=== PATIENT | female | born 1945 | race African-American/Black ===

== ENCOUNTER 2021-01-09 11:23 | Observation (INO) ==
[2021-01-09 11:53] LABS: Basophils % 0.7 % (0.0-0.8); Eosinophils # 0.1 10*3/uL (0.0-0.87); Hemoglobin 11.6 GM/DL (12.0-16.0); Immature Granulocytes % 0.7 %; Immature Granulocytes Absolute 0.04 #; Lymphocytes # 1.7 10*3/uL (1.4-4.0); Lymphocytes % 30.4 % (21.3-54.2); Mean Corpuscular HGB Conc 31.4 GM/DL (32-36); Mean Corpuscular Volume 95.4 FL (87-102); Mean Platelet Volume 9.5 FL (9.6-12.0); Monocytes % 5.2 % (1.7-12.7); Platelet Count 238 T/CUMM (130-400); Red Blood Count 3.88 MC/CUMM (3.8-5.5); Red Cell Distribution Width 13.2 % (9.3-17.3); White Blood Count 5.6 T/CUMM (4-12)
[2021-01-09] MEDS ORDERED: ASPIRIN 325 MG TABLET PO STA (11:53)
[2021-01-09] MEDS ORDERED: NITROGLYCERIN SL 0.4 MG TABLET SL PRN (11:53)
[2021-01-09 12:14] LABS: Albumin 3.5 G/DL (3.4-5.0); Bilirubin,Total 0.4 MG/DL (0.20-1.00); Calcium 9.3 MG/DL (8.5-10.1); Osmolality,Calculated 280.5 MOS/KG (273-304); Potassium 4.4 MMOL/L (3.5-5.1); Total Protein 7.3 G/DL (6.4-8.2)
[2021-01-09] MEDS ORDERED: ALUM/MAG/SIMETH/LIDO VISC 1:1 30 ML BOTTLE PO STA (12:48)
[2021-01-09] MEDS ORDERED: BISACODYL 5 MG TABLET PO PRN (14:40)
[2021-01-09] MEDS ORDERED: DEXTROSE 50% 25 GM/50 ML VIAL IV PRN (14:40)
[2021-01-09] MEDS ORDERED: GLUCAGON 1 MG VIAL IM PRN (14:40)
[2021-01-09] MEDS ORDERED: ONDANSETRON 4 MG/2 ML VIAL IV PRN (14:40)
[2021-01-09] MEDS ORDERED: MAGNESIUM HYDROXIDE SUSP 30 ML UDCUP PO PRN (14:40)
[2021-01-09] MEDS ORDERED: MORPHINE 2 MG/1 ML SYRINGE IV PRN (14:40)
[2021-01-09] MEDS ORDERED: ENOXAPARIN 40 MG/0.4 ML SYRINGE SUBCUT SCH (15:00)
[2021-01-09] MEDS ORDERED: CARBOXYMETHYLCELLULOSE 1% OPH SOLN BOTH EYES PRN (17:30)
[2021-01-09] MEDS: PANTOPRAZOLE 40 MG TABLET PO SCH (17:32)
[2021-01-09] MEDS: ACETAMINOPHEN 325 MG TABLET PO PRN (17:33)
[2021-01-09] MEDS: LACTATED RINGERS 1,000 ML IV SCH (17:34)
[2021-01-09] MEDS: MONTELUKAST 10 MG TABLET PO SCH (21:48)
[2021-01-09] MEDS: CALCIUM (CARBONATE)/VITAMIN D 600 MG-400 UNIT TABLET PO SCH (21:48)
[2021-01-10] MEDS ORDERED: METOPROLOL TARTRATE 5 MG/5 ML VIAL IV ONE (04:13)
[2021-01-10] MEDS: ENOXAPARIN 100 MG/ML SYRINGE SUBCUT SCH ×2 (04:33→15:25)
[2021-01-10 05:57] LABS: Basophils % 0.7 % (0.0-0.8); Eosinophils # 0.2 10*3/uL (0.0-0.87); Eosinophils % 2.7 % (0.00-10.9); Hematocrit 37.5 VOL% (35.7-47.0); Hemoglobin 11.9 GM/DL (12.0-16.0); Immature Granulocytes % 0.4 %; Immature Granulocytes Absolute 0.02 #; Lymphocytes # 2.1 10*3/uL (1.4-4.0); Lymphocytes % 36.9 % (21.3-54.2); Mean Corpuscular HGB Conc 31.7 GM/DL (32-36); Mean Corpuscular Volume 95.2 FL (87-102); Mean Platelet Volume 9.7 FL (9.6-12.0); Monocytes % 7.8 % (1.7-12.7); Neutrophils % 51.5 % (38.7-73.9); Platelet Count 246 T/CUMM (130-400); Red Blood Count 3.94 MC/CUMM (3.8-5.5); Red Cell Distribution Width 13.1 % (9.3-17.3); White Blood Count 5.6 T/CUMM (4-12)
[2021-01-10] MEDS: LACTATED RINGERS 1,000 ML IV SCH ×2 (06:20→20:46)
[2021-01-10 06:52] LABS: Albumin 3.1 G/DL (3.4-5.0); Bilirubin,Total 0.8 MG/DL (0.20-1.00); Calcium 9.5 MG/DL (8.5-10.1); Osmolality,Calculated 288.7 MOS/KG (273-304); Potassium 4.1 MMOL/L (3.5-5.1); Risk Ratio 4.26; Thyroid Stimulating Hormone 1.43 uIU/ml (0.358-3.74); VLDL Cholesterol 25.8 MG/DL
[2021-01-10] MEDS: MULTIVITAMIN (CENTRUM) TABLET PO SCH (08:55)
[2021-01-10] MEDS: ASPIRIN CHEW 81 MG TABLET PO SCH (08:55)
[2021-01-10] MEDS: DOXAZOSIN 1 MG TABLET PO SCH (08:55)
[2021-01-10] MEDS: PANTOPRAZOLE 40 MG TABLET PO SCH (08:56)
[2021-01-10] MEDS: CALCIUM (CARBONATE)/VITAMIN D 600 MG-400 UNIT TABLET PO SCH ×2 (08:56→21:31)
[2021-01-10] MEDS: LOSARTAN 50 MG TABLET PO SCH (08:56)
[2021-01-10] MEDS ORDERED: METOPROLOL TARTRATE 25 MG TABLET PO SCH (09:00)
[2021-01-10] MEDS ORDERED: NABUMETONE 500 MG TABLET PO PRN (11:29)
[2021-01-10] MEDS ORDERED: METOPROLOL SUCCINATE XL 50 MG TABLET PO SCH (12:00)
[2021-01-10] MEDS: SOTALOL 80 MG TABLET PO SCH (15:25)
[2021-01-10] MEDS: MONTELUKAST 10 MG TABLET PO SCH (20:43)
[2021-01-10] MEDS: FLUTICASONE 50 MCG NASAL SPRAY 16 GM BOTTLE BOTH NARES SCH (20:43)
[2021-01-11] MEDS: ENOXAPARIN 100 MG/ML SYRINGE SUBCUT SCH ×2 (02:48→15:47)
[2021-01-11] MEDS: ACETAMINOPHEN 325 MG TABLET PO PRN ×2 (04:06→21:35)
[2021-01-11 04:41] LABS: Basophils % 0.6 % (0.0-0.8); Eosinophils # 0.2 10*3/uL (0.0-0.87); Eosinophils % 2.9 % (0.00-10.9); Hematocrit 34.7 VOL% (35.7-47.0); Hemoglobin 10.7 GM/DL (12.0-16.0); Immature Granulocytes % 0.3 %; Immature Granulocytes Absolute 0.02 #; Lymphocytes # 3.4 10*3/uL (1.4-4.0); Lymphocytes % 47.4 % (21.3-54.2); Mean Corpuscular HGB Conc 30.8 GM/DL (32-36); Mean Corpuscular Volume 97.7 FL (87-102); Mean Platelet Volume 9.7 FL (9.6-12.0); Monocytes % 7.3 % (1.7-12.7); Neutrophils % 41.5 % (38.7-73.9); Platelet Count 220 T/CUMM (130-400); Red Blood Count 3.55 MC/CUMM (3.8-5.5); Red Cell Distribution Width 13.2 % (9.3-17.3); White Blood Count 7.2 T/CUMM (4-12)
[2021-01-11 05:02] LABS: Calcium 8.9 MG/DL (8.5-10.1); Potassium 4.2 MMOL/L (3.5-5.1)
[2021-01-11] MEDS: LOSARTAN 50 MG TABLET PO SCH (08:45)
[2021-01-11] MEDS: DOXAZOSIN 1 MG TABLET PO SCH (08:45)
[2021-01-11] MEDS: CALCIUM (CARBONATE)/VITAMIN D 600 MG-400 UNIT TABLET PO SCH ×2 (08:45→23:49)
[2021-01-11] MEDS: ASPIRIN CHEW 81 MG TABLET PO SCH (08:45)
[2021-01-11] MEDS: MULTIVITAMIN (CENTRUM) TABLET PO SCH (08:45)
[2021-01-11] MEDS: PANTOPRAZOLE 40 MG TABLET PO SCH (08:45)
[2021-01-11] MEDS: SOTALOL 80 MG TABLET PO SCH ×3 (08:45→23:49)
[2021-01-11] MEDS: LACTATED RINGERS 1,000 ML IV SCH (16:25)
[2021-01-11] MEDS: MONTELUKAST 10 MG TABLET PO SCH (21:35)
[2021-01-11] MEDS: FLUTICASONE 50 MCG NASAL SPRAY 16 GM BOTTLE BOTH NARES SCH (21:39)
[2021-01-12] MEDS: ENOXAPARIN 100 MG/ML SYRINGE SUBCUT SCH (03:56)
[2021-01-12] MEDS: LACTATED RINGERS 1,000 ML IV SCH ×2 (04:56→10:52)
[2021-01-12 05:09] LABS: Basophils % 0.4 % (0.0-0.8); Eosinophils # 0.2 10*3/uL (0.0-0.87); Eosinophils % 2.7 % (0.00-10.9); Hematocrit 34.5 VOL% (35.7-47.0); Immature Granulocytes % 0.3 %; Immature Granulocytes Absolute 0.02 #; Lymphocytes # 2.6 10*3/uL (1.4-4.0); Lymphocytes % 37.9 % (21.3-54.2); Mean Corpuscular HGB Conc 31.9 GM/DL (32-36); Mean Corpuscular Volume 96.4 FL (87-102); Mean Platelet Volume 10.2 FL (9.6-12.0); Monocytes % 7.5 % (1.7-12.7); Neutrophils % 51.2 % (38.7-73.9); Platelet Count 212 T/CUMM (130-400); Red Blood Count 3.58 MC/CUMM (3.8-5.5); Red Cell Distribution Width 13.1 % (9.3-17.3); White Blood Count 6.9 T/CUMM (4-12)
[2021-01-12 05:40] LABS: Calcium 8.8 MG/DL (8.5-10.1); Potassium 3.6 MMOL/L (3.5-5.1)
[2021-01-12] MEDS: ASPIRIN CHEW 81 MG TABLET PO SCH (09:00)
[2021-01-12] MEDS: SOTALOL 80 MG TABLET PO SCH (09:01)
[2021-01-12] MEDS: CALCIUM (CARBONATE)/VITAMIN D 600 MG-400 UNIT TABLET PO SCH (09:02)
[2021-01-12] MEDS: DOXAZOSIN 1 MG TABLET PO SCH (09:03)
[2021-01-12] MEDS: MULTIVITAMIN (CENTRUM) TABLET PO SCH (09:05)
[2021-01-12] MEDS: PANTOPRAZOLE 40 MG TABLET PO SCH (09:06)
[2021-01-12] MEDS: LOSARTAN 50 MG TABLET PO SCH (09:06)
[2021-01-12 11:48] VITALS: BP 160/75
== END 2021-01-12 12:30 | disposition home or self-care (01) ==
LOC: N.ED 11:23 → N.EDINP 11:23 → N.TELES 15:12
PROVIDERS: ADMIT Hospitalist; ATTEND Hospitalist

== ENCOUNTER 2021-07-14 05:41 | Observation (INO) ==
[2021-07-06 16:23] LABS: Basophils % 0.6 % (0.0-0.8); Eosinophils # 0.1 10*3/uL (0.0-0.87); Eosinophils % 2.2 % (0.00-10.9); Hematocrit 37.4 VOL% (35.7-47.0); Hemoglobin 11.9 GM/DL (12.0-16.0); Immature Granulocytes % 0.3 %; Immature Granulocytes Absolute 0.02 #; Lymphocytes % 31.1 % (21.3-54.2); Mean Corpuscular HGB Conc 31.8 GM/DL (32-36); Mean Corpuscular Volume 95.4 FL (87-102); Mean Platelet Volume 10.2 FL (9.6-12.0); Monocytes # 0.4 10*3/uL (0.11-0.8); Monocytes % 6.6 % (1.7-12.7); Neutrophils % 59.2 % (38.7-73.9); Platelet Count 268 T/CUMM (130-400); Red Blood Count 3.92 MC/CUMM (3.8-5.5); Red Cell Distribution Width 13.1 % (9.3-17.3); White Blood Count 6.5 T/CUMM (4-12)
[2021-07-06 16:43] LABS: Albumin 3.6 G/DL (3.4-5.0); Bilirubin,Total 0.5 MG/DL (0.20-1.00); Calcium 9.5 MG/DL (8.5-10.1); Osmolality,Calculated 279.4 MOS/KG (273-304); Potassium 4.8 MMOL/L (3.5-5.1); Total Protein 7.5 G/DL (6.4-8.2)
[2021-07-09 17:31] LABS: Bacteria,Urine Occasional /HPF (Few); Mucus,Urine Occasional /LPF (Occasional); RBC,Urine 1 /HPF (0-4); Squamous Epithelial Cell,Urine Occasional /HPF (0-10)
[2021-07-09 17:33] LABS: Glucose,Urine (UA) Negative (Negative); Ketones,Urine Negative (Negative); Nitrite,Urine Negative (Negative); Protein,Urine Negative (Negative); Urine Appearance Clear (Clear); Urine Color Yellow (Yellow); Urine Specific Gravity 1.025 (1.001-1.035)
[2021-07-09 17:34] LABS: Bilirubin,Urine Negative (Negative); Blood, Urine Negative (Negative); Urine Urobilinogen 0.2 eU/dL (<2.0)
[2021-07-14] MEDS ORDERED: VANCOMYCIN INJ 1,000 MG in SODIUM CHLORIDE 0.9% 250 ML IV ONE (06:00)
[2021-07-14] MEDS ORDERED: CLINDAMYCIN INJ 900 MG/50 ML PREMIX IV ONE (06:00)
[2021-07-14] MEDS ORDERED: propofoL 200 MG/20 ML VIAL IV ONE ×3 (06:14→08:56)
[2021-07-14] MEDS ORDERED: fentaNYL 100 MCG/2 ML VIAL ONE (06:14)
[2021-07-14] MEDS ORDERED: LIDOCAINE 2% 5 ML VIAL ONE (06:14)
[2021-07-14] MEDS ORDERED: MIDAZOLAM 2 MG/2 ML VIAL ONE (06:14)
[2021-07-14] MEDS ORDERED: LACTATED RINGERS 1,000 ML IV SCH (06:30)
[2021-07-14] MEDS ORDERED: GABAPENTIN 400 MG CAPSULE PO ONE (06:35)
[2021-07-14] MEDS ORDERED: ACETAMINOPHEN 500 MG TABLET PO ONE (06:35)
[2021-07-14] MEDS ORDERED: ROPIVACAINE 0.5% 30 ML VIAL ONE (06:37)
[2021-07-14] MEDS ORDERED: DEXAMETHASONE 4 MG/1 ML VIAL ONE (06:37)
[2021-07-14] MEDS ORDERED: ACETAMINOPHEN 500 MG TABLET ONE (06:42)
[2021-07-14] MEDS ORDERED: GABAPENTIN 400 MG CAPSULE ONE (06:42)
[2021-07-14] MEDS ORDERED: BUPIVACAINE SPINAL 0.75% 2 ML AMP SPINAL ONE (07:06)
[2021-07-14] MEDS ORDERED: buprenorphine HCL 0.3 MG/ML VIAL ONE (07:07)
[2021-07-14] MEDS ORDERED: LACTULOSE 20 GM/30 ML UDCUP PO PRN (07:09)
[2021-07-14] MEDS ORDERED: TEMAZEPAM 7.5 MG CAPSULE PO PRN (07:09)
[2021-07-14] MEDS ORDERED: BISACODYL 10 MG SUPP RECTAL PRN (07:09)
[2021-07-14] MEDS ORDERED: ONDANSETRON 4 MG/2 ML VIAL IV PRN (07:09)
[2021-07-14] MEDS ORDERED: diphenhydrAMINE CAP 25 MG CAPSULE PO PRN (07:09)
[2021-07-14] MEDS ORDERED: PROMETHAZINE 25 MG/1 ML VIAL IM PRN (07:09)
[2021-07-14] MEDS ORDERED: CARBOXYMETHYLCELLULOSE 1% OPH SOLN BOTH EYES PRN (07:12)
[2021-07-14] MEDS ORDERED: MORPHINE 2 MG/1 ML SYRINGE IV PRN (07:24)
[2021-07-14] MEDS ORDERED: TRANEXAMIC ACID 1,000 MG/10 ML VIAL ONE (07:50)
[2021-07-14] MEDS ORDERED: KETAMINE 500 MG/10 ML VIAL ONE (07:57)
[2021-07-14] MEDS ORDERED: ePHEDrine 50 MG/ML VIAL ONE (08:05)
[2021-07-14] MEDS ORDERED: LACTATED RINGERS 1,000 ML IV ONE (08:21)
[2021-07-14] MEDS ORDERED: SODIUM CHLORIDE 0.9% 500 ML IV ONE (08:56)
[2021-07-14] MEDS: ASPIRIN CHEW 81 MG TABLET PO SCH (13:02)
[2021-07-14] MEDS: MULTIVITAMIN (CENTRUM) TABLET PO SCH (13:03)
[2021-07-14] MEDS: LOSARTAN 50 MG TABLET PO SCH (13:06)
[2021-07-14] MEDS: DOXAZOSIN 1 MG TABLET PO SCH (13:06)
[2021-07-14] MEDS: CALCIUM (CARBONATE)/VITAMIN D 600 MG-400 UNIT TABLET PO SCH ×2 (13:07→21:12)
[2021-07-14] MEDS: PANTOPRAZOLE 40 MG TABLET PO SCH ×2 (13:07→21:12)
[2021-07-14] MEDS: SOTALOL 80 MG TABLET PO SCH ×2 (13:08→21:12)
[2021-07-14] MEDS: DOCUSATE SODIUM 100 MG CAPSULE PO SCH ×2 (13:11→21:12)
[2021-07-14] MEDS: CLINDAMYCIN INJ 900 MG/50 ML PREMIX IV SCH ×2 (13:36→21:21)
[2021-07-14] MEDS: FONDAPARINUX 2.5 MG/0.5 ML SYRINGE SUBCUT SCH (21:11)
[2021-07-14] MEDS: FLUTICASONE 50 MCG NASAL SPRAY 16 GM BOTTLE BOTH NARES SCH (21:11)
[2021-07-14] MEDS: MONTELUKAST 10 MG TABLET PO SCH (21:12)
[2021-07-15 04:09] LABS: Basophils % 0.3 % (0.0-0.8); Eosinophils # 0.1 10*3/uL (0.0-0.87); Eosinophils % 0.8 % (0.00-10.9); Hematocrit 30.4 VOL% (35.7-47.0); Hemoglobin 9.7 GM/DL (12.0-16.0); Immature Granulocytes % 0.4 %; Immature Granulocytes Absolute 0.03 #; Lymphocytes # 1.1 10*3/uL (1.4-4.0); Lymphocytes % 14.4 % (21.3-54.2); Mean Corpuscular HGB Conc 31.9 GM/DL (32-36); Mean Corpuscular Volume 95.6 FL (87-102); Mean Platelet Volume 9.2 FL (9.6-12.0); Monocytes # 0.8 10*3/uL (0.11-0.8); Monocytes % 10.3 % (1.7-12.7); Neutrophils % 73.8 % (38.7-73.9); Platelet Count 130 T/CUMM (130-400); Red Blood Count 3.18 MC/CUMM (3.8-5.5); White Blood Count 7.6 T/CUMM (4-12)
[2021-07-15 04:28] LABS: Calcium 8.7 MG/DL (8.5-10.1); Osmolality,Calculated 281.4 MOS/KG (273-304)
[2021-07-15] MEDS: IPRATROPIUM 0.03% NASAL SPRAY 30 ML BOTTLE BOTH NARES SCH ×3 (04:58→23:33)
[2021-07-15] MEDS: MORPHINE 2 MG/1 ML SYRINGE IV PRN ×4 (05:03→15:55)
[2021-07-15] MEDS ORDERED: ACETAMINOPHEN 325 MG TABLET PO PRN (07:10)
[2021-07-15] MEDS: MULTIVITAMIN (CENTRUM) TABLET PO SCH (08:56)
[2021-07-15] MEDS: CALCIUM (CARBONATE)/VITAMIN D 600 MG-400 UNIT TABLET PO SCH ×2 (08:56→20:49)
[2021-07-15] MEDS: DOXAZOSIN 1 MG TABLET PO SCH (08:57)
[2021-07-15] MEDS: ASPIRIN CHEW 81 MG TABLET PO SCH (08:57)
[2021-07-15] MEDS: DOCUSATE SODIUM 100 MG CAPSULE PO SCH ×2 (08:57→20:50)
[2021-07-15] MEDS: PANTOPRAZOLE 40 MG TABLET PO SCH ×2 (08:57→20:49)
[2021-07-15] MEDS: SOTALOL 80 MG TABLET PO SCH ×2 (08:57→20:49)
[2021-07-15] MEDS: LOSARTAN 50 MG TABLET PO SCH (12:36)
[2021-07-15] MEDS: MAGNESIUM HYDROXIDE SUSP 30 ML UDCUP PO PRN (12:43)
[2021-07-15] MEDS: FONDAPARINUX 2.5 MG/0.5 ML SYRINGE SUBCUT SCH (20:47)
[2021-07-15] MEDS: FLUTICASONE 50 MCG NASAL SPRAY 16 GM BOTTLE BOTH NARES SCH (20:48)
[2021-07-15] MEDS: MONTELUKAST 10 MG TABLET PO SCH (20:48)
[2021-07-16 05:23] LABS: Basophils % 0.1 % (0.0-0.8); Eosinophils # 0.1 10*3/uL (0.0-0.87); Eosinophils % 1.1 % (0.00-10.9); Hematocrit 29.7 VOL% (35.7-47.0); Hemoglobin 9.1 GM/DL (12.0-16.0); Immature Granulocytes % 0.6 %; Immature Granulocytes Absolute 0.05 #; Lymphocytes % 22.8 % (21.3-54.2); Mean Corpuscular HGB Conc 30.6 GM/DL (32-36); Mean Corpuscular Volume 97.7 FL (87-102); Mean Platelet Volume 10.2 FL (9.6-12.0); Monocytes # 1.2 10*3/uL (0.11-0.8); Monocytes % 13.4 % (1.7-12.7); Platelet Count 132 T/CUMM (130-400); Red Blood Count 3.04 MC/CUMM (3.8-5.5); Red Cell Distribution Width 13.2 % (9.3-17.3); White Blood Count 8.7 T/CUMM (4-12)
[2021-07-16] MEDS: CALCIUM (CARBONATE)/VITAMIN D 600 MG-400 UNIT TABLET PO SCH ×2 (08:08→20:47)
[2021-07-16] MEDS: DOXAZOSIN 1 MG TABLET PO SCH (08:09)
[2021-07-16] MEDS: LOSARTAN 50 MG TABLET PO SCH (08:09)
[2021-07-16] MEDS: MULTIVITAMIN (CENTRUM) TABLET PO SCH (08:09)
[2021-07-16] MEDS: SOTALOL 80 MG TABLET PO SCH ×2 (08:09→20:46)
[2021-07-16] MEDS: DOCUSATE SODIUM 100 MG CAPSULE PO SCH ×2 (08:09→20:46)
[2021-07-16] MEDS: PANTOPRAZOLE 40 MG TABLET PO SCH ×2 (08:09→20:47)
[2021-07-16] MEDS: ASPIRIN CHEW 81 MG TABLET PO SCH (08:09)
[2021-07-16] MEDS: IPRATROPIUM 0.03% NASAL SPRAY 30 ML BOTTLE BOTH NARES SCH ×2 (08:10→20:50)
[2021-07-16] MEDS: MAGNESIUM HYDROXIDE SUSP 30 ML UDCUP PO PRN (17:52)
[2021-07-16] MEDS: FONDAPARINUX 2.5 MG/0.5 ML SYRINGE SUBCUT SCH (20:46)
[2021-07-16] MEDS: MONTELUKAST 10 MG TABLET PO SCH (20:47)
[2021-07-16] MEDS: FLUTICASONE 50 MCG NASAL SPRAY 16 GM BOTTLE BOTH NARES SCH (20:50)
[2021-07-17 07:29] VITALS: BP 104/65
[2021-07-17] MEDS: CALCIUM (CARBONATE)/VITAMIN D 600 MG-400 UNIT TABLET PO SCH (09:26)
[2021-07-17] MEDS: SOTALOL 80 MG TABLET PO SCH ×2 (09:26→09:49)
[2021-07-17] MEDS: DOCUSATE SODIUM 100 MG CAPSULE PO SCH (09:27)
[2021-07-17] MEDS: ASPIRIN CHEW 81 MG TABLET PO SCH (09:27)
[2021-07-17] MEDS: LOSARTAN 50 MG TABLET PO SCH (09:27)
[2021-07-17] MEDS: PANTOPRAZOLE 40 MG TABLET PO SCH (09:27)
[2021-07-17] MEDS: MULTIVITAMIN (CENTRUM) TABLET PO SCH (09:27)
[2021-07-17] MEDS: DOXAZOSIN 1 MG TABLET PO SCH (09:27)
[2021-07-17] MEDS: IPRATROPIUM 0.03% NASAL SPRAY 30 ML BOTTLE BOTH NARES SCH (09:28)
== END 2021-07-17 10:19 ==
LOC: N.OR 05:41 → N.SDSINP 05:44 → INTOOBSV 07:09 → N.3E 08:49
PROVIDERS: ADMIT Orthopaedic Surgery; ATTEND Orthopaedic Surgery

== ENCOUNTER 2022-04-22 17:50 | Inpatient (IN) ==
[2022-04-22] MEDS ORDERED: DICYCLOMINE 20 MG/2 ML AMP IM ONE (19:38)
[2022-04-22] MEDS ORDERED: SODIUM CHLORIDE 0.9% 1,000 ML IV STA (19:38)
[2022-04-22] MEDS ORDERED: ONDANSETRON 4 MG/2 ML VIAL IV ONE (19:38)
[2022-04-22 20:21] LABS: Basophils % 0.2 % (0.0-0.8); Hematocrit 36.8 VOL% (35.7-47.0); Hemoglobin 11.9 GM/DL (12.0-16.0); Immature Granulocytes % 0.2 %; Immature Granulocytes Absolute 0.03 #; Lymphocytes # 0.4 10*3/uL (1.4-4.0); Mean Corpuscular HGB Conc 32.3 GM/DL (32-36); Mean Corpuscular Volume 94.4 FL (87-102); Mean Platelet Volume 9.4 FL (9.6-12.0); Monocytes # 0.4 10*3/uL (0.11-0.8); Monocytes % 2.9 % (1.7-12.7); Neutrophils % 93.7 % (38.7-73.9); Platelet Count 230 T/CUMM (130-400); Red Cell Distribution Width 13.1 % (9.3-17.3); White Blood Count 12.2 T/CUMM (4-12)
[2022-04-22 20:40] LABS: Albumin 3.1 G/DL (3.4-5.0); Bilirubin,Total 4.7 MG/DL (0.20-1.00); Osmolality,Calculated 281.4 MOS/KG (273-304); Potassium 4.1 MMOL/L (3.5-5.1); Total Protein 7.5 G/DL (6.4-8.2)
[2022-04-22 21:07] LABS: Band Neutrophils 2 % (0-10); Lymphocytes 4 % (20-55); Total Cells Counted 100
[2022-04-22 21:08] LABS: Platelet Estimate Adequate
[2022-04-22] MEDS ORDERED: CIPROFLOXACIN INJ 400 MG/200 ML PREMIX IV STA (21:30)
[2022-04-22] MEDS ORDERED: metroNIDAZOLE INJ 500 MG/100 ML PREMIX IV STA (21:31)
[2022-04-22] MEDS ORDERED: ALBUTEROL/IPRATROPIUM 3 ML NEB RESP TX PRN (21:50)
[2022-04-22] MEDS ORDERED: hydrALAZINE 20 MG/1 ML VIAL IV PRN (21:50)
[2022-04-22] MEDS ORDERED: MORPHINE 2 MG/1 ML SYRINGE IV PRN (21:50)
[2022-04-22 21:57] LABS: RBC,Urine 1 /HPF (0-4); Squamous Epithelial Cell,Urine Occasional /HPF (0-10); Urine Appearance Clear (Clear); Urine Color Yellow (Yellow); Urine Specific Gravity 1.015 (1.001-1.035); Urine pH 7.5 (4.5-8.0)
[2022-04-22 21:58] LABS: Bilirubin,Urine Small mg/dL (Negative); Blood, Urine Trace mg/dL (Negative); Glucose,Urine (UA) Negative (Negative); Ketones,Urine Negative (Negative); Nitrite,Urine Negative (Negative); Protein,Urine Negative (Negative); Urine Urobilinogen 0.2 eU/dL (<2.0)
[2022-04-22] MEDS ORDERED: DEXT 5% NACL 0.9% KCL 20 MEQ 20 MEQ/1,000 ML BAG IV SCH (22:30)
[2022-04-23] MEDS: ONDANSETRON 4 MG/2 ML VIAL IV PRN ×2 (00:33→12:50)
[2022-04-23 05:15] LABS: Basophils % 0.1 % (0.0-0.8); Eosinophils % 0.1 % (0.00-10.9); Hematocrit 34.1 VOL% (35.7-47.0); Immature Granulocytes % 0.5 %; Immature Granulocytes Absolute 0.04 #; Lymphocytes # 0.4 10*3/uL (1.4-4.0); Lymphocytes % 5.2 % (21.3-54.2); Mean Corpuscular HGB Conc 32.3 GM/DL (32-36); Mean Corpuscular Volume 95.8 FL (87-102); Monocytes # 0.4 10*3/uL (0.11-0.8); Monocytes % 4.7 % (1.7-12.7); Neutrophils % 89.4 % (38.7-73.9); Platelet Count 181 T/CUMM (130-400); Red Blood Count 3.56 MC/CUMM (3.8-5.5); Red Cell Distribution Width 13.2 % (9.3-17.3); White Blood Count 8.5 T/CUMM (4-12)
[2022-04-23 05:29] LABS: INR 1.2; PT Patient Result 12.9 SECS (10.1-12.1); Partial Thromboplastin Time 31.2 SECS (23.7-32.9)
[2022-04-23 05:31] LABS: Calcium 8.6 MG/DL (8.5-10.1); Osmolality,Calculated 284.1 MOS/KG (273-304); Potassium 3.9 MMOL/L (3.5-5.1)
[2022-04-23 05:35] LABS: Albumin 2.9 G/DL (3.4-5.0); Bilirubin,Direct 4.06 MG/DL (0.0-0.20); Bilirubin,Indirect 1.3 MG/DL (0.0-1.0); Bilirubin,Total 5.4 MG/DL (0.20-1.00); Total Protein 6.5 G/DL (6.4-8.2)
[2022-04-23 07:05] LABS: Risk Ratio 2.51; VLDL Cholesterol 9.2 MG/DL
[2022-04-23] MEDS ORDERED: INDOMETHACIN SUPP 50 MG SUPP RECTAL ONE (08:53)
[2022-04-23] MEDS ORDERED: HYDROmorphone 1 MG/1 ML SYRINGE IV PRN (09:42)
[2022-04-23] MEDS: LACTATED RINGERS 1,000 ML IV SCH ×2 (10:54→23:51)
[2022-04-23] MEDS ORDERED: propofoL 200 MG/20 ML VIAL IV ONE (10:55)
[2022-04-23] MEDS ORDERED: LIDOCAINE 2% 5 ML VIAL ONE (10:55)
[2022-04-23] MEDS ORDERED: SUCCINYLCHOLINE 200 MG/10 ML VIAL ONE (10:55)
[2022-04-23] MEDS ORDERED: fentaNYL 100 MCG/2 ML VIAL ONE (10:56)
[2022-04-23] MEDS ORDERED: ePHEDrine 50 MG/ML VIAL ONE (11:37)
[2022-04-23] MEDS ORDERED: SEVOFLURANE 1 UNIT/15 MINUTE INH ONE (11:37)
[2022-04-23] MEDS ORDERED: PHENYLEPHRINE 1 MG/10 ML SYRINGE IV ONE (11:47)
[2022-04-23] MEDS ORDERED: GLUCAGON 1 MG VIAL ONE (11:49)
[2022-04-23] MEDS: PANTOPRAZOLE 40 MG VIAL IV SCH (14:26)
[2022-04-23] MEDS: metroNIDAZOLE INJ 500 MG/100 ML PREMIX IV SCH ×2 (14:28→22:01)
[2022-04-23] MEDS: CIPROFLOXACIN INJ 400 MG/200 ML PREMIX IV SCH ×2 (15:42→23:26)
[2022-04-24] MEDS: metroNIDAZOLE INJ 500 MG/100 ML PREMIX IV SCH ×3 (05:23→21:33)
[2022-04-24 05:27] LABS: Basophils % 0.2 % (0.0-0.8); Eosinophils # 0.2 10*3/uL (0.0-0.87); Eosinophils % 4.5 % (0.00-10.9); Immature Granulocytes % 0.2 %; Immature Granulocytes Absolute 0.01 #; Lymphocytes # 0.5 10*3/uL (1.4-4.0); Lymphocytes % 9.2 % (21.3-54.2); Mean Corpuscular HGB Conc 31.3 GM/DL (32-36); Mean Corpuscular Volume 97.3 FL (87-102); Mean Platelet Volume 10.1 FL (9.6-12.0); Monocytes # 0.3 10*3/uL (0.11-0.8); Monocytes % 6.9 % (1.7-12.7); Platelet Count 172 T/CUMM (130-400); Red Blood Count 3.29 MC/CUMM (3.8-5.5); Red Cell Distribution Width 13.2 % (9.3-17.3); White Blood Count 4.9 T/CUMM (4-12)
[2022-04-24 05:37] LABS: Albumin 2.3 G/DL (3.4-5.0); Bilirubin,Total 4.6 MG/DL (0.20-1.00); Calcium 8.3 MG/DL (8.5-10.1); Osmolality,Calculated 282.1 MOS/KG (273-304); Potassium 3.7 MMOL/L (3.5-5.1); Total Protein 6.1 G/DL (6.4-8.2)
[2022-04-24] MEDS: PANTOPRAZOLE 40 MG VIAL IV SCH ×2 (09:23→21:38)
[2022-04-24] MEDS: LACTATED RINGERS 1,000 ML IV SCH ×4 (09:23→12:14)
[2022-04-24] MEDS: CIPROFLOXACIN INJ 400 MG/200 ML PREMIX IV SCH ×2 (11:01→23:48)
[2022-04-24] MEDS ORDERED: FAMOTIDINE 20 MG/2 ML VIAL IV ONE (15:04)
[2022-04-24] MEDS: SOTALOL 80 MG TABLET PO SCH (15:24)
[2022-04-24] MEDS ORDERED: SOTALOL 80 MG TABLET PO SCH (18:00)
[2022-04-24] MEDS: ONDANSETRON 4 MG/2 ML VIAL IV PRN (18:20)
[2022-04-24] MEDS: MONTELUKAST 10 MG TABLET PO SCH (21:36)
[2022-04-24] MEDS: DOXAZOSIN 1 MG TABLET PO SCH (21:36)
[2022-04-25] MEDS: ONDANSETRON 4 MG/2 ML VIAL IV PRN (01:21)
[2022-04-25] MEDS: SOTALOL 80 MG TABLET PO SCH ×2 (03:49→21:27)
[2022-04-25] MEDS: metroNIDAZOLE INJ 500 MG/100 ML PREMIX IV SCH (05:24)
[2022-04-25] MEDS ORDERED: FAMOTIDINE 20 MG/2 ML VIAL IV ONE (06:00)
[2022-04-25] MEDS ORDERED: TISSUE ADHESIVE 1 EACH APPLICATOR TOP ONE (06:08)
[2022-04-25] MEDS ORDERED: LIDOCAINE 1%/EPI INJ 20 ML VIAL ONE (06:08)
[2022-04-25] MEDS ORDERED: BUPIVACAINE MPF 0.25% 10 ML VIAL ONE (06:08)
[2022-04-25] MEDS ORDERED: INDOCYANINE GREEN 25 MG VIAL IV ONE (06:30)
[2022-04-25] MEDS ORDERED: propofoL 200 MG/20 ML VIAL IV ONE (06:48)
[2022-04-25] MEDS ORDERED: DEXAMETHASONE 4 MG/1 ML VIAL ONE (06:48)
[2022-04-25] MEDS ORDERED: LIDOCAINE 2% 5 ML VIAL ONE (06:48)
[2022-04-25] MEDS ORDERED: ROCURONIUM 50 MG/5 ML VIAL IV ONE (06:48)
[2022-04-25] MEDS ORDERED: ACETAMINOPHEN INJ 1,000 MG/100 ML VIAL IV ONE (06:48)
[2022-04-25] MEDS ORDERED: ONDANSETRON 4 MG/2 ML VIAL ONE (06:48)
[2022-04-25] MEDS ORDERED: KETOROLAC 30 MG/1 ML VIAL ONE (06:48)
[2022-04-25] MEDS ORDERED: SEVOFLURANE 1 UNIT/15 MINUTE INH ONE (06:48)
[2022-04-25] MEDS ORDERED: fentaNYL 100 MCG/2 ML VIAL ONE (06:49)
[2022-04-25] MEDS ORDERED: ePHEDrine 50 MG/ML VIAL ONE (08:49)
[2022-04-25] MEDS ORDERED: GLYCOPYRROLATE 0.4 MG/2 ML VIAL ONE (09:11)
[2022-04-25] MEDS ORDERED: NEOSTIGMINE 10 MG/10 ML VIAL ONE (09:12)
[2022-04-25] MEDS ORDERED: MEPERIDINE 25 MG/1 ML VIAL IV PRN (10:22)
[2022-04-25] MEDS ORDERED: MEPERIDINE 25 MG/1 ML VIAL ONE (10:22)
[2022-04-25] MEDS ORDERED: ONDANSETRON 4 MG/2 ML VIAL IV PRN (10:22)
[2022-04-25] MEDS: DOXAZOSIN 1 MG TABLET PO SCH ×2 (11:06→21:21)
[2022-04-25] MEDS: ASPIRIN CHEW 81 MG TABLET PO SCH (11:06)
[2022-04-25] MEDS: LOSARTAN 50 MG TABLET PO SCH (11:07)
[2022-04-25] MEDS: PANTOPRAZOLE 40 MG VIAL IV SCH ×3 (11:13→21:27)
[2022-04-25] MEDS ORDERED: LACTATED RINGERS 1,000 ML IV SCH (13:00)
[2022-04-25] MEDS ORDERED: ENOXAPARIN 40 MG/0.4 ML SYRINGE SUBCUT SCH (15:00)
[2022-04-25] MEDS: LACTATED RINGERS 1,000 ML IV SCH ×2 (15:31→15:32)
[2022-04-25] MEDS: MONTELUKAST 10 MG TABLET PO SCH (21:21)
[2022-04-26 05:40] LABS: Basophils % 0.3 % (0.0-0.8); Eosinophils % 0.2 % (0.00-10.9); Hematocrit 32.4 VOL% (35.7-47.0); Hemoglobin 10.1 GM/DL (12.0-16.0); Immature Granulocytes % 0.5 %; Immature Granulocytes Absolute 0.03 #; Lymphocytes # 1.2 10*3/uL (1.4-4.0); Mean Corpuscular HGB Conc 31.2 GM/DL (32-36); Mean Corpuscular Volume 95.3 FL (87-102); Monocytes # 0.5 10*3/uL (0.11-0.8); Monocytes % 8.4 % (1.7-12.7); Neutrophils % 70.6 % (38.7-73.9); Platelet Count 202 T/CUMM (130-400); Red Cell Distribution Width 13.2 % (9.3-17.3); White Blood Count 5.8 T/CUMM (4-12)
[2022-04-26 05:57] LABS: Albumin 2.4 G/DL (3.4-5.0); Bilirubin,Total 2.2 MG/DL (0.20-1.00); Calcium 8.6 MG/DL (8.5-10.1); Osmolality,Calculated 281.3 MOS/KG (273-304); Total Protein 6.2 G/DL (6.4-8.2)
[2022-04-26] MEDS: LOSARTAN 50 MG TABLET PO SCH (08:35)
[2022-04-26] MEDS: PANTOPRAZOLE 40 MG VIAL IV SCH (08:35)
[2022-04-26] MEDS: DOXAZOSIN 1 MG TABLET PO SCH (08:35)
[2022-04-26] MEDS: ASPIRIN CHEW 81 MG TABLET PO SCH (08:35)
[2022-04-26] MEDS: SOTALOL 80 MG TABLET PO SCH (08:56)
[2022-04-26 11:09] VITALS: BP 147/59
== END 2022-04-26 12:15 | disposition home or self-care (01) | DRG 418 ==
LOC: N.ED 17:50 → SUATTDRO 21:50 → N.EDINP 21:50 → N.3E 23:30
PROVIDERS: ADMIT Emergency Medicine; ATTEND Internal Medicine
PROC: ERCPWSP (ICD-10-PCS; 2022-04-23 11:50)